=== PATIENT | female | born 1945 | race Caucasian/White ===

== ENCOUNTER 2024-07-30 17:16 | Inpatient (IN) | payer MEDICARE, OTHER ==
[~2024-07-30] VITALS: Ht 165.1 cm; Wt 81.6 kg
[2024-07-30 22:00] VITALS: BP 152/80; TEMP 98.8; O2SAT 96
[2024-07-30] MEDS ORDERED: MAG HYDROX/AL HYDROX/SIMETH 30 ML UDC PO PRN (22:30)
[2024-07-30] MEDS ORDERED: MAGNESIUM HYDROXIDE 30 ML UDC PO PRN (22:30)
[2024-07-30] MEDS ORDERED: ZOLPIDEM TARTRATE 5 MG TABLET PO PRN ×2 (22:30)
[2024-07-30] MEDS ORDERED: LORAZEPAM 0.5 MG TABLET PO PRN (22:30)
[2024-07-30] MEDS ORDERED: ACETAMINOPHEN 325 MG TABLET PO PRN (22:30)
[2024-07-30] MEDS: BLOOD SUGAR DIAGNOSTIC 1 EACH STRIP IN ONE (22:59)
[2024-07-30] MEDS ORDERED: SIMV-49 PO (23:33)
[2024-07-30] MEDS ORDERED: LATA7.5D EACHEYE (23:33)
[2024-07-30] MEDS ORDERED: CHOLECALCIFEROL PO (23:33)
[2024-07-30] MEDS ORDERED: TRAZ-182 PO (23:33)
[2024-07-30] MEDS ORDERED: CITA20TA19 PO (23:33)
[2024-07-30] MEDS ORDERED: LOSA100T3 PO (23:33)
[2024-07-30] MEDS ORDERED: AMLO2.5T4 PO (23:33)
[2024-07-30] MEDS ORDERED: BRIM5DRO EACHEYE (23:33)
[2024-07-30] MEDS ORDERED: MEMA10TA PO (23:33)
[2024-07-30] MEDS ORDERED: ASPI-1169 PO (23:33)
[2024-07-30] MEDS ORDERED: RISP0.5T5 PO (23:33)
[2024-07-31] MEDS: LORAZEPAM 1 MG TABLET PO PRN (03:41)
[2024-07-31 08:00] VITALS: BP 153/81; TEMP 98.2; O2SAT 99
[2024-07-31] MEDS ORDERED: MEMA5TAB PO (08:06)
[2024-07-31] MEDS ORDERED: CHOL100043 PO (08:06)
[2024-07-31 08:11] LABS: CALCIUM, SERUM 9.7 mg/dL (8.5-10.1); CREATININE 0.9 mg/dL (0.6-1.3); TOTAL PROTEIN, SERUM 7.8 g/dL (6.4-8.2)
[2024-07-31 08:13] LABS: CHOLESTEROL 250 mg/dL (<200); HDL CHOLESTEROL 57 mg/dL (40-60); LDL 162 mg/dL (0-99); TRIGLYCERIDES 124 mg/dL (30-150)
[2024-07-31] MEDS: OLANZAPINE 10 MG VIAL IM ONE (09:06)
[2024-07-31 09:52] VITALS: BP 153/81
[2024-07-31] MEDS: AMLODIPINE BESYLATE 2.5 MG TABLET PO SCH (09:52)
[2024-07-31] MEDS ORDERED: Medication Not On Formulary EA (Cholecalciferol (Vitamin D3) (Vitamin D3) 1,000 UNITS) PO PRN (10:00)
[2024-07-31] MEDS ORDERED: TRAZODONE 50 MG TABLET PO PRN (10:00)
[2024-07-31] MEDS ORDERED: hydrALAZINE HCL 25 MG TABLET PO PRN (10:00)
[2024-07-31] MEDS ORDERED: BRIMONIDINE TARTRATE EACHEYE SCH (13:00)
[2024-07-31] MEDS: BRIMONIDINE TARTRATE OPHT SOLN 5 ML BOTTLE EACHEYE SCH (13:00)
[2024-07-31] MEDS ORDERED: SIMVASTATIN 20 MG TABLET PO SCH (22:00)
[2024-07-31] MEDS ORDERED: LATANOPROST EYE DROP 0.005% 2.5 ML BOTTLE EACHEYE SCH (22:00)
[2024-07-31] MEDS ORDERED: ATORVASTATIN 10 MG TABLET PO SCH (22:00)
[2024-08-01] MEDS ORDERED: MEMANTINE HCL 5 MG TABLET PO SCH (09:00)
[2024-08-01] MEDS ORDERED: CITALOPRAM HYDROBROMIDE 20 MG TABLET PO SCH (09:00)
[2024-08-01] MEDS ORDERED: LOSARTAN POTASSIUM 50 MG TABLET PO SCH (09:00)
[2024-08-01] MEDS ORDERED: CYANOCOBALAMIN 500 MCG TABLET PO SCH (09:00)
[2024-08-01] MEDS ORDERED: ASPIRIN 81 MG TAB.CHEW PO SCH (09:00)
== END 2024-07-31 16:00 | disposition left against medical advice (07) | DRG 885 ==
LOC: GPS 21:44
PROVIDERS: ADMIT Psychiatry & Neurology Psychiatry; ATTEND Internal Medicine
DX: F29 Unspecified psychosis not due to a substance or known physiological condition (principal); F03.94 Unspecified dementia, unspecified severity, with anxiety; F03.92 Unspecified dementia, unspecified severity, with psychotic disturbance; I10 Essential (primary) hypertension; E78.5 Hyperlipidemia, unspecified; H40.9 Unspecified glaucoma; E55.9 Vitamin D deficiency, unspecified; G31.9 Degenerative disease of nervous system, unspecified; F41.9 Anxiety disorder, unspecified; Z96.653 Presence of artificial knee joint, bilateral; Z90.710 Acquired absence of both cervix and uterus
CPT/HCPCS: 36415; 80053-TC; 80061-TC; 82962-TC; 87081-TC; 97112-TC; 97116-TC; 97530-TC; J3490